=== PATIENT | female | born 2005 | race Caucasian/White ===

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

== ENCOUNTER 2023-07-05 13:19 | Emergency (ER) | payer BC ==
[~2023-07-05] VITALS: Ht 154.9 cm; Wt 47.6 kg
== END 2023-07-05 15:09 | disposition home or self-care (01) ==
LOC: ED 13:19
DX: T15.92XA Foreign body on external eye, part unspecified, left eye, initial encounter (principal); X58.XXXA Exposure to other specified factors, initial encounter; Y93.89 Activity, other specified; Y92.89 Other specified places as the place of occurrence of the external cause; Y99.8 Other external cause status